=== PATIENT | male | born 1975 | race Caucasian/White ===

== ENCOUNTER 2018-07-08 09:00 | Outpatient (RCR) | payer OTHER | END 2018-08-17 | disposition home or self-care (01) | LOC: WSPT | DX: M48.02 Spinal stenosis, cervical region (principal); M47.22 Other spondylosis with radiculopathy, cervical region; M62.838 Other muscle spasm | CPT/HCPCS: G0283-GP; G8981-GP; G8982-GP ==

== ENCOUNTER → 2020-09-08 | Outpatient (CLI) | payer OTHER | LOC: COL.RAD 08:04 | DX: M48.02 Spinal stenosis, cervical region (principal); M50.31 Other cervical disc degeneration, high cervical region ==

== ENCOUNTER 2021-07-04 19:25 | Emergency (ER) | payer OTHER ==
[~2021-07-04] VITALS: Wt 127.3 kg
[2021-07-04 19:27] VITALS: TEMP 98
[2021-07-04] MEDS ORDERED: NORCO 325 MG-51 TAB PO (21:35)
[2021-07-04] MEDS ORDERED: NAPROSYN500 MG PO (21:35)
[2021-07-04] MEDS ORDERED: ASPERCREME1 EACH TP (21:35)
[2021-07-04 22:00] VITALS: BP 142/71; PULSE 86
== END 2021-07-04 22:10 | disposition home or self-care (01) ==
LOC: COL.ER 19:25
DX: S22.31XA Fracture of one rib, right side, initial encounter for closed fracture (principal); F17.210 Nicotine dependence, cigarettes, uncomplicated; X50.9XXA Other and unspecified overexertion or strenuous movements or postures, initial encounter
CPT/HCPCS: A9284; J1170; J1885; J2270; J2405